=== PATIENT | female | born 1960 | race Caucasian/White ===

== ENCOUNTER 2017-04-10 10:44 | Day surgery (SDC) | payer BC ==
--- NOTE | ~2017-04-10 | EGD ---
EGD REPORT [facility] [address] [address] NAME: JAMIL MARTIN : 56 STATUS : REG [facility] PAT#: [id number] AGE: 56 ADM/REG DATE : 04/10/17 MR#: [id number] REPORT SERV DATE: 04/10/17 DICTATED BY: RODRIGO MURILLO DATE: 04/10/17 REPORT STATUS : Draft TRANSCRIBED BY: [facility] DATE: 04/10/17 Endoscopy Center Patient Name: Jamil Martin Date of : 1960 Attending MD: RODRIGO MURILLO MD Procedure Date No Time: 04/10/2017 Procedure: Upper GI endoscopy Indications: Epigastric abdominal pain, Heartburn, Suspected esophageal reflux, Gastroparesis, Nausea with vomiting Referring MD: YUN GALVAN Medicines: General Anesthesia Complications: No immediate complications. Procedure: Pre-Anesthesia Assessment: - ASA Grade Assessment: III - A patient with severe systemic disease. After obtaining informed consent, the endoscope was passed under direct vision. Throughout the procedure, the patient's blood pressure, pulse, and oxygen saturations were monitored continuously. The [facility] [id number] was introduced through the mouth, and advanced to the third part of duodenum. The upper GI endoscopy was somewhat difficult due to presence of food. The patient tolerated the procedure. Findings: The examined esophagus was normal. A large amount of food (residue) was found in the gastric fundus and in the gastric body. Evidence of a patent Billroth II gastrojejunostomy was found. The gastrojejunal anastomosis was characterized by ulceration. This was traversed. The efferent limb was examined. The afferent limb was examined. Biopsies were taken with a cold forceps for histology. Impression: - Normal esophagus. - A large amount of food (residue) in the stomach. - Patent Billroth II gastrojejunostomy was found. Biopsied. Recommendation: - Await pathology results. - Continue present medications. Procedure Code(s): --- Professional --- 47101, Esophagogastroduodenoscopy, flexible, transoral; with biopsy, single or multiple EGD REPORT [facility] [address] [facility] [address]. [address] NAME: JAMIL MARTIN : [birth year] STATUS : REG [facility] PAT#: [id number] AGE: 56 ADM/REG DATE : 04/10/17 MR#: [id number] REPORT SERV DATE: 04/10/17 DICTATED BY: RODRIGO MURILLO DATE: 04/10/17 REPORT STATUS : Draft TRANSCRIBED BY: [employer] DATE: 04/10/17 Diagnosis Code(s): --- Professional --- Z98.0, Intestinal bypass and anastomosis status R10.13, Epigastric pain R12, Heartburn K31.84, Gastroparesis R11.2, Nausea with vomiting, unspecified CPT copyright 2013 [employer]. All rights reserved. The codes documented in this report are preliminary and upon rocket engine tester review may be revised to meet current compliance requirements. RODRIGO MURILLO MD 04/10/2017 2:23 PM This report has been signed electronically. Number of Addenda: 0 Note Initiated On: 04/10/2017 1:40 PM Scope Withdrawal Time 0 hours 0 minutes 0 seconds [address] [facility] [address] [address]
--- NOTE | ~2017-04-10 | EGD ---
EGD REPORT [facility] [address] [place]. [address] NAME: JAMIL MARTIN : 56 STATUS : REG [facility] PAT#: [id number] AGE: 56 ADM/REG DATE : 04/10/17 MR#: [id number] REPORT SERV DATE: 04/10/17 DICTATED BY: RODRIGO MURILLO DATE: 04/10/17 REPORT STATUS : Draft TRANSCRIBED BY: [employer] DATE: 04/10/17 Endoscopy Center Patient Name: Jamil Martin Date of : 1960 Attending MD: RODRIGO MURILLO MD Procedure Date No Time: 04/10/2017 Procedure: Colonoscopy Indications: FH of Colon Cancer -distant relative, Constipation Referring MD: YUN GALVAN Medicines: General Anesthesia Complications: No immediate complications. Procedure: Pre-Anesthesia Assessment: - ASA Grade Assessment: III - A patient with severe systemic disease. After I obtained informed consent, the scope was passed under direct vision. Throughout the procedure, the patient's blood pressure, pulse, and oxygen saturations were monitored continuously. The PCF [id number] was introduced through the anus and advanced to the cecum, identified by appendiceal orifice and ileocecal valve. The colonoscopy was performed without difficulty. The patient tolerated the procedure. The quality of the bowel preparation was fair. Findings: The perianal and digital rectal examinations were normal. Internal hemorrhoids were found during endoscopy and were mild. Impression: - Internal hemorrhoids. Recommendation: - Repeat colonoscopy in 5 years for surveillance. Procedure Code(s): --- Professional --- 04479, Colonoscopy, flexible, proximal to splenic flexure; diagnostic, with or without collection of specimen(s) by brushing or washing, with or without colon decompression (separate procedure) Diagnosis Code(s): --- Professional --- K64.8, Other hemorrhoids Z80.0, Family history of malignant neoplasm of digestive organs K59.00, Constipation, unspecified EGD REPORT [facility] [address] [place]. [address] NAME: JAMIL MARTIN : [birth year] STATUS : REG [facility] PAT#: [id number] AGE: 56 ADM/REG DATE : 04/10/17 MR#: [id number] REPORT SERV DATE: 04/10/17 DICTATED BY: RODRIGO MURILLO. DATE: 04/10/17 REPORT STATUS : Draft TRANSCRIBED BY: [employer] DATE: 04/10/17 CPT copyright 2013 [employer]. All rights reserved. The codes documented in this report are preliminary and upon regional production manager review may be revised to meet current compliance requirements. RODRIGO MURILLO MD 04/10/2017 2:46 PM This report has been signed electronically. Number of Addenda: 0 Note Initiated On: 04/10/2017 1:31 PM Scope Withdrawal Time 0 hours 0 minutes [address] [place] [address]
[~2017-04-10 10:44] MED LIST: AFRIN15 NAS; ALORA0.025 MG TD; AMB10 PO; ARMOUR THYRO60 MG PO; ARMOUR THYRO90 MG PO; B121000P SC; BENICAR; BENICAR20 PO; BIOTIN5 MG PO; CENTRUM PO; D100 PO; DELESTROGE IM; ESTRACE2 MG PO; ESTRADIOL2 MG OR; ESTRADIOL2 MG PO; ESTRATEST PO; FLAG500TAB PO; GLUCOPHXR7 PO; GOODY'S EX-STR1 EAC1 OR; GOODYS PM1 POW OR; HYDROCHLOROT25 MG PO; IRON PO; KEPPRA500 PO; KLONO1 PO; KLOR-CON 1010 MEQ PO; LOP25 PO; METOPROLOL; NEXIUM; NEXIUM40 PO; P20 PO; PCET PO; PR25 PO; PREV30 PO; PRISTIQ50 MG PO; PROVHFA INH; RELPAX40 MG PO; SEROQUEL1C PO; SYNTHROID; VICOPROFEN 7.5/1 TAB PO; WELLXL300 PO; XANAX1 MG PO; ZETIA PO; [UNRECOGNIZED DRUG - REMARK] IM
== END 2017-04-10 23:59 | disposition home health service (06) ==
LOC: DMU 10:44
PROVIDERS: Internal Medicine Gastroenterology
PROC: 0DB48ZX Excision of Esophagogastric Junction, Via Natural or Artificial Opening Endoscopic, Diagnostic (ICD-10-PCS; principal; 2017-04-10 11:30)
PROC: 0DJD8ZZ Inspection of Lower Intestinal Tract, Via Natural or Artificial Opening Endoscopic (ICD-10-PCS; 2017-04-10 11:30)
DX: K52.9 Noninfective gastroenteritis and colitis, unspecified (principal); K64.8 Other hemorrhoids; R56.9 Unspecified convulsions; K31.84 Gastroparesis; I10 Essential (primary) hypertension; G47.33 Obstructive sleep apnea (adult) (pediatric); E03.9 Hypothyroidism, unspecified; D64.9 Anemia, unspecified; M79.7 Fibromyalgia; F41.9 Anxiety disorder, unspecified; F32.9 Major depressive disorder, single episode, unspecified; M19.90 Unspecified osteoarthritis, unspecified site; K21.9 Gastro-esophageal reflux disease without esophagitis; G43.909 Migraine, unspecified, not intractable, without status migrainosus; Z88.8 Allergy status to other drugs, medicaments and biological substances; Z80.0 Family history of malignant neoplasm of digestive organs; Z98.0 Intestinal bypass and anastomosis status; Z79.82 Long term (current) use of aspirin; Z79.899 Other long term (current) drug therapy; Z90.49 Acquired absence of other specified parts of digestive tract; Z90.710 Acquired absence of both cervix and uterus; Z98.890 Other specified postprocedural states
CPT/HCPCS: 88305; J0330

== ENCOUNTER 2017-04-20 15:44 | Emergency (ER) | payer BC ==
[2017-04-20 16:47] LABS: BASOPHILS 0.2 %; BASOPHILS ABSOLUTE 0.02 10/3/uL (0.0-0.16); EOSINOPHILS 0.3 %; EOSINOPHILS ABSOLUTE 0.03 10/3/uL (0.0-0.53); ER CBC TAT 0 Hrs 05 Mins; HEMATOCRIT 44.1 % (36.0-48.0); HEMOGLOBIN 14.6 g/dL (12.0-16.0); IMMATURE GRANULOCYTES 0.4 %; IMMATURE GRANULOCYTES ABSOLUTE 0.04 10/3/uL (0.0-0.11); LYMPHOCYTES 19.6 %; LYMPHOCYTES ABSOLUTE 2.06 10/3/uL (0.67-4.30); MEAN CORPUS HGB CONC 33.1 g/dL (32.0-36.0); MEAN CORPUSCULAR HEMOGLOB 32.2 pg (26.0-34.0); MEAN CORPUSCULAR VOLUME 97.4 fL (80-100); MEAN PLATELET VOLUME 10.2 fL (9.2-13.0); MONOCYTES 7.9 %; MONOCYTES ABSOLUTE 0.83 10/3/uL (0.21-1.20); NEUTROPHILS 71.6 %; NEUTROPHILS ABSOLUTE 7.53 10/3/uL (2.02-8.40); PLATELET COUNT 327 10/3/uL (150-400); RED CELL COUNT 4.53 10/6/uL (4.0-5.6); WHITE BLOOD CELLS 10.5 10/3/uL (4.5-10.5)
[2017-04-20 16:48] LABS: MANUAL DIFF NO %
[2017-04-20 16:57] LABS: ASCORBIC ACID (UR NOT ORDER) NEG (NEG); BILIRUBIN, URINE NEGATIVE (NEG); ER URINALYSIS TAT 0 Hrs 15 Mins; KETONE, URINE NEGATIVE (NEG); LEUKOCYTE ESTERASE(NOT OR NEG (NEG); NITRITE (URINE) NEG (NEG); WBC (NOT ORDERED) (RFLEX) < 1 (0-5)
[2017-04-20 16:59] LABS: A/G RATIO 1.1 (0.7-1.9); ALBUMIN 3.8 G/DL (3.5-5.0); ALKALINE PHOSPHATASE 87 U/L (45-117); CALCIUM, SERUM 8.9 MG/DL (8.5-10.4); CO2 (CARBON DIOXIDE) 27 MMOL/L (24-34); CREATININE 0.62 MG/DL (0.55-1.02); GFR AFRICAN AMERICAN 115 ML/MIN (>=60); GFR NON AFRICAN AMERICAN 99 ML/MIN (>=60); GLOBULIN 3.4 G/DL (2.5-4.1); GLUCOSE, SERUM 87 MG/DL (60-99); POTASSIUM, SERUM 3.7 MMOL/L (3.5-5.3); SGOT(AST) 16 U/L (5-40); SGPT(ALT) 22 U/L (5-65); TOTAL BILIRUBIN 0.3 MG/DL (0-1.2); TOTAL PROTEIN 7.2 G/DL (6.0-8.5)
[2017-04-20 17:00] LABS: BUN (BLOOD UREA NITROGEN) 7 MG/DL (6-23); CHLORIDE, SERUM 97 MMOL/L (96-112); SODIUM, SERUM 133 MMOL/L (135-148)
== END 2017-04-20 17:27 | disposition home or self-care (01) ==
LOC: ER 15:44
PROVIDERS: Physician Assistant
DX: R11.2 Nausea with vomiting, unspecified (principal); Z88.8 Allergy status to other drugs, medicaments and biological substances; Z79.82 Long term (current) use of aspirin; Z79.899 Other long term (current) drug therapy
CPT/HCPCS: 71010; 80053; 81001; 83690; 85025; 96374; 96375; 99284; J2550; J2800

== ENCOUNTER 2017-04-27 16:24 | Inpatient (IN) | payer BC ==
--- NOTE | ~2017-04-27 | CN ---
Consultation Report [facility] [address] [place]. [address] NAME: JAMIL MARTIN : [birth year] STATUS : ADM Anuja PAT#: [id number] AGE: 56 ADM/REG DATE : 04/27/17 MR#: [id number] REPORT SERV DATE: 04/28/17 DICTATED BY: RODRIGO MURILLO DATE: 04/27/17 REPORT STATUS : Draft TRANSCRIBED BY: MODL DATE: 04/27/17 DATE OF CONSULTATION: 04/27/2017 HISTORY OF PRESENT ILLNESS: This is a 56-year-old white female admitted with nausea, vomiting, intermittent abdominal pain. Recent EGD in the last couple of weeks revealing status post Billroth 2 gastroparesis with a large amount of retained food and anastomotic deformity and ulcerations. She has had frequent headaches and neck and back pain. On intermittent hydrocodone and also Goody's Powders and also has had a colonoscopy which revealed a fair prep and internal hemorrhoids. She has hypertension, seizures, and some history of elevated LFTs. She is status post cholecystectomy, tonsillar and adenoid, and also the B-II as mentioned. FAMILY HISTORY: Positive colon cancer and colon polyps. SOCIAL HISTORY: Negative EtOH, nicotine. In emergency room today, her CT of abdomen and pelvis were essentially negative. Alkaline phosphatase 172, and AST of 49, ALT 103, lipase 62. White count 11,000, hemoglobin 14.2. There has been no bleeding no fever. Chest x-ray was unremarkable as well. PHYSICAL EXAMINATION: GENERAL: Ill-appearing white female, alert. HEENT: Anicteric. NECK: Negative. CHEST: Clear to percussion. HEART: Regular rate and rhythm without murmur or gallop. ABDOMEN: Soft, nontender, and nondistended. Bowel sounds present. EXTREMITIES: Otherwise grossly intact. NEUROLOGIC: Otherwise grossly intact. ASSESSMENT: 1. Nausea and vomiting, intermittent abdominal pain. The patient had an EGD revealing retained food, status post Billroth II. 2. Anastomotic inflammation, ulceration, biopsies which were negative and some deformity. CT in the ER was negative. White count of 11,000. Status post cholecystectomy. Some elevated liver function tests which she has had in the past. Intermittent hydrocodone and Goody's Powder use. 3. History of headaches and neck and back pain. 4. Hypertension. 5. Seizures. SUGGESTION: Consultation Report [place] [id number]. [address] NAME: JAMIL MARTIN : [birth year] STATUS : ADM Anuja PAT#: [id number] AGE: 56 ADM/REG DATE : 04/27/17 MR#: [id number] REPORT SERV DATE: 04/28/17 DICTATED BY: RODRIGO MURILLO DATE: 04/27/17 REPORT STATUS : Draft TRANSCRIBED BY: MAC DATE: 04/27/17 1. Keep n.p.o. for now. 2. IV fluids, as mentioned. 3. Antiemetics. 4. We will begin Reglan. 5. PPI use as well. Also, we will need to follow up LFTs. We will follow with you. Thank you very much for your consultation. DENNYS/MAC Rodrigo Murillo M.D. / [id number] CC: Stephanie Singletary M.D.
--- NOTE | ~2017-04-27 | HP ---
History And Physical [address] [place]. [address] NAME: JAMIL MARTIN : 56 STATUS : ADM Anuja PAT#: [id number] AGE: 56 ADM/REG DATE : 04/27/17 MR#: [id number] REPORT SERV DATE: 04/28/17 DICTATED BY: TYRONE LORENZO DATE: 04/27/17 REPORT STATUS : Draft TRANSCRIBED BY: MODL DATE: 04/27/17 DATE OF ADMISSION: 04/27/2017 CHIEF COMPLAINT: A 56-year-old female presenting with nausea and vomiting. HISTORY OF PRESENT ILLNESS: The patient's history was obtained through careful interview with the patient, , and daughter coupled with review of [facility] medical records. The patient for several months now has had progressive nausea and almost daily episodes of vomiting, now the vomiting has gotten to a point where it is "violent" and for about a week now "can't keep anything down." She has lost about five pounds over that period of time. She has occasional epigastric abdominal discomfort, a cramping quality, that is intermittent, 5/10 severity at its worse. She had an upper endoscopy and colonoscopy 04/10/2007 under the care of Dr. Reno Barrera that were unremarkable. She has had a nonproductive cough, chest congestion, but no shortness of breath. She has had laryngitis. No fevers or chills. REVIEW OF SYSTEMS: Otherwise, a 14-point review of systems was obtained was negative. PAST MEDICAL HISTORY: 1. Seizure. 2. Migraine headaches. 3. Hypertension. 4. Hypothyroidism. 5. Gastroparesis. 6. Chronic back pain with history of epidural injection. 7. Peptic ulcer disease and duodenal stricture with dilatation, seen by Dr. Barrera. 8. Anxiety and depression. 9. Tachyarrhythmias. 10.Congestive heart failure with ejection fraction of 45%. 11.Pneumonia with sepsis. 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 Julian. 13.Obstructive sleep apnea. 14.Rosacea that is exacerbated by sun exposure. PAST SURGICAL HISTORY: 1. Partial gastrectomy with a Billroth II. 2. Hysterectomy. 3. Cholecystectomy. 4. Benign breast surgery. 5. Left foot surgery. History And Physical [address] [address] NAME: JAMIL MARTIN : [birth year] STATUS : ADM Anuja PAT#: [id number] AGE: 56 ADM/REG DATE : 04/27/17 MR#: [id number] REPORT SERV DATE: 04/28/17 DICTATED BY: TYRONE LORENZO DATE: 04/27/17 REPORT STATUS : Draft TRANSCRIBED BY: MAC DATE: 04/27/17 6. Left axillary lymph node removal. ALLERGIES: NAPROXEN. SOCIAL HISTORY: No tobacco abuse. No alcohol abuse. She is . Lives in [place], [place]. Has a son and a daughter. Three grandchildren. FAMILY HISTORY: Mother with breast cancer, no cardiac disease. CURRENT MEDICATIONS: Include Goody's Powder, Klonopin 1 mg every 6 hours p.r.n., Pristiq 50 mg p.o. daily, Cymbalta 60 mg p.o. daily, Relpax 40 mg for migraines, Nexium 40 mg p.o. daily, hydrocodone p.r.n., multivitamin, promethazine, and Diovan 80 mg p.o. daily. PHYSICAL EXAMINATION: VITAL SIGNS: Temperature 97.4, pulse 109, blood pressure 113/73, respiratory rate 16, and O2 saturation 94% on room air. GENERAL: A pleasant, cooperative female, in evidence of distress though because of vomiting. HEENT: Pupils equal, round, and reactive to light. No conjunctival pallor. No scleral icterus. Nares are patent. Oropharynx is clear of obstruction. Moist mucous membranes. NECK: Trachea midline. No thyromegaly. LYMPH: No cervical lymphadenopathy. No supraclavicular lymphadenopathy. RESPIRATORY: Clear to auscultation at bases. No wheezes, rales, or rhonchi. Normal respiratory effort. CARDIOVASCULAR: Tachycardic. Regular rhythm. No murmurs, rubs, or gallops. No extremity edema is appreciated. ABDOMEN: Completely soft. Maybe mild distention. Active bowel tones are noted. No hepatosplenomegaly. DERMATOLOGICAL: Warm and dry extremities. No pallor. No cyanosis. PSYCHIATRIC: Normal affect. Good mood. Alert and oriented x3. LABORATORY DATA: White blood cell count 11, hemoglobin 14, hematocrit 44, and platelets 379. Sodium 139, potassium 4.0, chloride 103, bicarb 30, BUN 10, creatinine 0.6, glucose 91. Lipase 62. AST 41, ALT 103, alkaline phosphatase 172, total bilirubin 0.3. Urinalysis negative for infection. STUDIES: 1. CT scan of the abdomen and pelvis shows no acute intraabdominal process. 2. EKG by my own evaluation shows sinus tachycardia. ASSESSMENT AND PLAN: 1. Gastroparesis exacerbation. Give IV azithromycin, IV Reglan. The patient will apparently be undergoing an upper endoscopy under the care of Dr. Reno Barrera. 2. Cough secondary to reflux and vomiting. 3. Elevated liver enzymes, monitor. History And Physical [address] [address] NAME: JAMIL MARTIN : 56 STATUS : ADM Anuja PAT#: [id number] AGE: 56 ADM/REG DATE : 04/27/17 MR#: [id number] REPORT SERV DATE: 04/28/17 DICTATED BY: TYRONE LORENZO DATE: 04/27/17 REPORT STATUS : Draft TRANSCRIBED BY: MAC DATE: 04/27/17 L/MAC Tyrone Lorenzo M.D. / [id number] CC: MD Frandy Zimmerman M.D. David Collins, M.D.
--- NOTE | ~2017-04-27 | DS ---
Discharge Summary [place] [id number] [facility] [place]. [address] NAME: JAMIL MARTIN : 56 STATUS : ADM IN PAT#: [id number] AGE: 56 ADM/REG DATE : 04/27/17 MR#: [id number] REPORT SERV DATE: 05/02/17 DICTATED BY: REJI HERRING DATE: 05/02/17 REPORT STATUS : Draft TRANSCRIBED BY: MODL DATE: 05/02/17 ADMISSION DATE: 04/27/2017 DISCHARGE DATE: 05/02/2017 REASON FOR ADMISSION: Gastroparesis exacerbation. HISTORY OF PRESENT ILLNESS: Please refer to Dr. Ever Kelley's history and physical dated 04/27/2017, for complete details regarding the patient's admission. The patient was admitted to the Hospitalist Service for gastroparesis exacerbation. HOSPITAL COURSE: The patient had an uncomplicated hospital course. Dr. Kelley admitted the patient, put her on IV azithromycin and IV Reglan. Dr. Barrera was consulted, did not recommend any intervention with endoscopy but to treat her medically for her gastroparesis. She had fully recovered. Her nausea and vomiting had resolved. I assumed care of this patient from Dr. Marrero on 05/01/2017, and she was tolerating a much better diet every day. She is able to tolerate solid foods now without any complaints. No nausea, vomiting, or abdominal pain. She has reached maximal hospitalization and will be discharged today in stable condition. DISCHARGE DIAGNOSES: 1. Gastroparesis exacerbation now resolved. 2. Transaminitis. 3. History of seizure disorder. 4. Hypertension. 5. Hypothyroidism. 6. Anxiety. 7. Chronic pain syndrome. 8. Migraines. PROCEDURES: Include CT scan of the abdomen in consultation with Dr. Barrera. DISCHARGE MEDICATIONS: Include 1. Duloxetine 60 mg once a day. 2. Pristiq 50 mg once a day. 3. Multivitamin daily. 4. Reglan 10 mg before meals at bedtime. 5. Nexium 40 mg daily. 6. Diovan 80 mg at bedtime. 7. Relpax 40 mg p.r.n. migraine. 8. Phenergan p.r.n. nausea. 9. [place] p.r.n. pain. 10.Klonopin 1 mg p.r.n. anxiety. The patient will follow up with Dr. Barrera in two weeks. DICTATED BY: Reji Herring MD Discharge Summary [address] [address] NAME: JAMIL MARTIN : 56 STATUS : ADM IN PAT#: [id number] AGE: 56 ADM/REG DATE : 04/27/17 MR#: [id number] REPORT SERV DATE: 05/02/17 DICTATED BY: REJI HERRING DATE: 05/02/17 REPORT STATUS : Draft TRANSCRIBED BY: [employer] DATE: 05/02/17 ZAIRE/MAC Reji Herring MD / [id number] CC: MD Frandy Salamanca M.D.
[2017-04-27 14:05] LABS: BASOPHILS 0.5 %; BASOPHILS ABSOLUTE 0.05 10/3/uL (0.0-0.16); EOSINOPHILS 2.2 %; EOSINOPHILS ABSOLUTE 0.24 10/3/uL (0.0-0.53); ER CBC TAT 0 Hrs 05 Mins; HEMATOCRIT 43.8 % (36.0-48.0); HEMOGLOBIN 14.2 g/dL (12.0-16.0); IMMATURE GRANULOCYTES 0.5 %; IMMATURE GRANULOCYTES ABSOLUTE 0.06 10/3/uL (0.0-0.11); LYMPHOCYTES 16.2 %; LYMPHOCYTES ABSOLUTE 1.78 10/3/uL (0.67-4.30); MEAN CORPUS HGB CONC 32.4 g/dL (32.0-36.0); MEAN CORPUSCULAR HEMOGLOB 32.4 pg (26.0-34.0); MEAN PLATELET VOLUME 9.7 fL (9.2-13.0); MONOCYTES 4.5 %; MONOCYTES ABSOLUTE 0.49 10/3/uL (0.21-1.20); NEUTROPHILS 76.1 %; NEUTROPHILS ABSOLUTE 8.39 10/3/uL (2.02-8.40); PLATELET COUNT 329 10/3/uL (150-400); RBC DISTRIBUTION WIDTH 13.3 % (12.0-16.0); RED CELL COUNT 4.38 10/6/uL (4.0-5.6)
[2017-04-27 14:06] LABS: MANUAL DIFF NO %
[2017-04-27 14:21] LABS: ALBUMIN 3.8 G/DL (3.5-5.0); BUN (BLOOD UREA NITROGEN) 10 MG/DL (6-23); CALCIUM, SERUM 9.6 MG/DL (8.5-10.4); CHLORIDE, SERUM 103 MMOL/L (96-112); CO2 (CARBON DIOXIDE) 30 MMOL/L (24-34); CREATININE 0.57 MG/DL (0.55-1.02); GFR AFRICAN AMERICAN 118 ML/MIN (>=60); GFR NON AFRICAN AMERICAN 102 ML/MIN (>=60); GLOBULIN 3.8 G/DL (2.5-4.1); GLUCOSE, SERUM 91 MG/DL (60-99); SGOT(AST) 41 U/L (5-40); SGPT(ALT) 103 U/L (5-65); SODIUM, SERUM 139 MMOL/L (135-148); TOTAL BILIRUBIN 0.3 MG/DL (0-1.2); TOTAL PROTEIN 7.6 G/DL (6.0-8.5)
[2017-04-27 14:22] LABS: ALKALINE PHOSPHATASE 172 U/L (45-117)
[2017-04-27 15:12] LABS: ASCORBIC ACID (UR NOT ORDER) 40 (NEG); BILIRUBIN, URINE NEGATIVE (NEG); ER URINALYSIS TAT 0 Hrs 16 Mins; KETONE, URINE NEGATIVE (NEG); LEUKOCYTE ESTERASE(NOT OR NEG (NEG); NITRITE (URINE) NEG (NEG); WBC (NOT ORDERED) (RFLEX) < 1 (0-5)
[2017-04-27] MEDS ORDERED: NEXIUM40 PO (19:10)
[2017-04-27] MEDS ORDERED: RELPAX40 MG PO (19:11)
[2017-04-27] MEDS ORDERED: NORCO1 TA1 PO (19:12)
[2017-04-27] MEDS ORDERED: PR25 PO (19:12)
[2017-04-27] MEDS ORDERED: GOODY'S EX-STR1 EAC1 PO (19:12)
[2017-04-27] MEDS ORDERED: MULTIVITAMI1 PO (19:13)
[2017-04-27] MEDS ORDERED: KLONO1 PO (19:13)
[2017-04-27] MEDS ORDERED: CYMBALTA60 PO (19:13)
[2017-04-27] MEDS ORDERED: PRISTIQ50 MG PO (19:15)
[2017-04-27] MEDS ORDERED: DIOV80 PO (19:15)
[2017-04-28 05:26] LABS: BASOPHILS 0.5 %; BASOPHILS ABSOLUTE 0.04 10/3/uL (0.0-0.16); EOSINOPHILS 1.8 %; EOSINOPHILS ABSOLUTE 0.15 10/3/uL (0.0-0.53); HEMOGLOBIN 12.6 g/dL (12.0-16.0); IMMATURE GRANULOCYTES 0.6 %; IMMATURE GRANULOCYTES ABSOLUTE 0.05 10/3/uL (0.0-0.11); LYMPHOCYTES 40.5 %; MEAN CORPUS HGB CONC 32.7 g/dL (32.0-36.0); MEAN CORPUSCULAR HEMOGLOB 32.5 pg (26.0-34.0); MEAN CORPUSCULAR VOLUME 99.2 fL (80-100); MEAN PLATELET VOLUME 9.8 fL (9.2-13.0); MONOCYTES 6.7 %; MONOCYTES ABSOLUTE 0.56 10/3/uL (0.21-1.20); NEUTROPHILS 49.9 %; NEUTROPHILS ABSOLUTE 4.19 10/3/uL (2.02-8.40); PLATELET COUNT 333 10/3/uL (150-400); RED CELL COUNT 3.88 10/6/uL (4.0-5.6); WHITE BLOOD CELLS 8.4 10/3/uL (4.5-10.5)
[2017-04-28 05:30] LABS: HEMATOCRIT 38.5 % (36.0-48.0); MANUAL DIFF NO %
[2017-04-28 05:51] LABS: INTERNATIONAL NORMAL RATI 1.1 UNITS (-); PROTIME (NOT ORD) 13.8 SEC (12.0-14.5)
[2017-04-28 05:52] LABS: BUN (BLOOD UREA NITROGEN) 8 MG/DL (6-23); CHLORIDE, SERUM 109 MMOL/L (96-112); GFR AFRICAN AMERICAN 124 ML/MIN (>=60); GFR NON AFRICAN AMERICAN 107 ML/MIN (>=60); GLUCOSE, SERUM 77 MG/DL (60-99); PARTIAL THROMBO TIME 33.8 SEC (22.5-37.2); POTASSIUM, SERUM 3.8 MMOL/L (3.5-5.3); SGOT(AST) 34 U/L (5-40); SGPT(ALT) 69 U/L (5-65); SODIUM, SERUM 142 MMOL/L (135-148)
[2017-04-28 05:55] LABS: A/G RATIO 0.9 (0.7-1.9); ALBUMIN 2.9 G/DL (3.5-5.0); ALKALINE PHOSPHATASE 128 U/L (45-117); CALCIUM, SERUM 8.4 MG/DL (8.5-10.4); CO2 (CARBON DIOXIDE) 25 MMOL/L (24-34); GLOBULIN 3.1 G/DL (2.5-4.1); TOTAL BILIRUBIN 0.9 MG/DL (0-1.2)
[2017-04-29 06:06] LABS: BASOPHILS 0.5 %; BASOPHILS ABSOLUTE 0.04 10/3/uL (0.0-0.16); EOSINOPHILS 2.4 %; EOSINOPHILS ABSOLUTE 0.19 10/3/uL (0.0-0.53); HEMATOCRIT 37.5 % (36.0-48.0); HEMOGLOBIN 12.2 g/dL (12.0-16.0); IMMATURE GRANULOCYTES 0.6 %; IMMATURE GRANULOCYTES ABSOLUTE 0.05 10/3/uL (0.0-0.11); LYMPHOCYTES 46.1 %; LYMPHOCYTES ABSOLUTE 3.59 10/3/uL (0.67-4.30); MEAN CORPUS HGB CONC 32.5 g/dL (32.0-36.0); MEAN CORPUSCULAR HEMOGLOB 31.7 pg (26.0-34.0); MEAN CORPUSCULAR VOLUME 97.4 fL (80-100); MEAN PLATELET VOLUME 10.3 fL (9.2-13.0); MONOCYTES 7.8 %; MONOCYTES ABSOLUTE 0.61 10/3/uL (0.21-1.20); NEUTROPHILS 42.6 %; PLATELET COUNT 308 10/3/uL (150-400); RED CELL COUNT 3.85 10/6/uL (4.0-5.6); WHITE BLOOD CELLS 7.8 10/3/uL (4.5-10.5)
[2017-04-29 06:11] LABS: MANUAL DIFF NO %
[2017-04-29 06:24] LABS: CALCIUM, SERUM 8.3 MG/DL (8.5-10.4); CHLORIDE, SERUM 109 MMOL/L (96-112); CO2 (CARBON DIOXIDE) 24 MMOL/L (24-34); CREATININE 0.53 MG/DL (0.55-1.02); GFR AFRICAN AMERICAN 121 ML/MIN (>=60); GFR NON AFRICAN AMERICAN 105 ML/MIN (>=60); POTASSIUM, SERUM 3.7 MMOL/L (3.5-5.3); SODIUM, SERUM 138 MMOL/L (135-148)
[2017-04-29 06:25] LABS: BUN (BLOOD UREA NITROGEN) 4 MG/DL (6-23); GLUCOSE, SERUM 97 MG/DL (60-99); PHOSPHORUS, SERUM 1.9 MG/DL (2.5-4.5)
[2017-04-30 10:28] LABS: BUN (BLOOD UREA NITROGEN) 3 MG/DL (6-23); CALCIUM, SERUM 8.2 MG/DL (8.5-10.4); CHLORIDE, SERUM 109 MMOL/L (96-112); CO2 (CARBON DIOXIDE) 25 MMOL/L (24-34); CREATININE 0.53 MG/DL (0.55-1.02); GFR AFRICAN AMERICAN 121 ML/MIN (>=60); GFR NON AFRICAN AMERICAN 105 ML/MIN (>=60); GLUCOSE, SERUM 100 MG/DL (60-99); POTASSIUM, SERUM 4.2 MMOL/L (3.5-5.3); SODIUM, SERUM 141 MMOL/L (135-148)
[2017-04-30 10:30] LABS: PHOSPHORUS, SERUM 3.1 MG/DL (2.5-4.5)
[2017-05-02] MEDS ORDERED: REG PO (11:45)
== END 2017-05-02 14:34 | disposition home or self-care (01) | DRG 395 ==
LOC: ER 16:24 → 4SO 19:32
PROVIDERS: Emergency Medicine; Hospitalist; Internal Medicine
DX: K91.89 Other postprocedural complications and disorders of digestive system (principal); I11.0 Hypertensive heart disease with heart failure; D72.1 Eosinophilia; K31.84 Gastroparesis; E03.9 Hypothyroidism, unspecified; M54.9 Dorsalgia, unspecified; Y83.2 Surgical operation with anastomosis, bypass or graft as the cause of abnormal reaction of the patient, or of later complication, without mention of misadventure at the time of the procedure; G40.909 Epilepsy, unspecified, not intractable, without status epilepticus; Z87.11 Personal history of peptic ulcer disease; G47.33 Obstructive sleep apnea (adult) (pediatric); L71.9 Rosacea, unspecified; Y92.009 Unspecified place in unspecified non-institutional (private) residence as the place of occurrence of the external cause; F41.9 Anxiety disorder, unspecified; F32.9 Major depressive disorder, single episode, unspecified; Z90.3 Acquired absence of stomach [part of]; Z98.0 Intestinal bypass and anastomosis status; Z88.8 Allergy status to other drugs, medicaments and biological substances; Z79.891 Long term (current) use of opiate analgesic; K21.9 Gastro-esophageal reflux disease without esophagitis; G89.4 Chronic pain syndrome; G43.909 Migraine, unspecified, not intractable, without status migrainosus; R74.0 Nonspecific elevation of levels of transaminase and lactic acid dehydrogenase [LDH]
CPT/HCPCS: 71020; 74176; 80048; 80053; 81001; 82150; 83690; 83735; 84100; 84443; 85025; 85610; 85730; 96372; 96374; 96375; 99285; A9270-GY; J0456; J2360; J2405; J2550; J2765; J3475